=== PATIENT | female | born 1985 | race Two or more races ===

== ENCOUNTER 2018-11-18 23:27 | Emergency (ER) | payer SELFPAY ==
[~2018-11-18] VITALS: Ht 167.6 cm; Wt 90.7 kg
--- NOTE | 2018-11-18 23:50 | PHYS DOC ---
Adult General Chief Complaint Chief Complaint: VAGINAL BLEEDING HPI HPI Patient is a 33 year old F who traveled from [place] over the last 48 hours and is coming in concerned about her . She states her LMP was in Sept and she has been having intermittent bleeding and cramping. Currently here in ER she denies bleeding or cramping. Review of Systems Review of Systems Constitutional: Denies fever or chills [] Eyes: Denies change in visual acuity, redness, or eye pain [] HENT: Denies nasal congestion or sore throat [] Respiratory: Denies cough or shortness of breath [] Cardiovascular: No additional information not addressed in HPI [] GI: Denies abdominal pain, nausea, vomiting, bloody stools or diarrhea [] : Denies dysuria or hematuria [] Musculoskeletal: Denies back pain or joint pain [] Integument: Denies rash or skin lesions [] Neurologic: Denies headache, focal weakness or sensory changes [] Endocrine: Denies polyuria or polydipsia [] All other systems were reviewed and found to be within normal limits, except as documented in this note. Current Medications Current Medications Current Medications Medications (Trade) Dose Ordered Sig/[place] Start Time Stop Time Status Last Admin Dose Admin Sodium Chloride 1,000 ml @ 1,000 mls/hr 1X ONCE 11/19/18 00:00 11/19/18 00:59 DC 11/19/18 00:15 1,000 MLS/HR Allergies Allergies Allergies Coded Allergies Type Severity Reaction Last Updated Verified No Known Drug Allergies 11/18/18 No Physical Exam Physical Exam Constitutional: Well developed, well nourished, no acute distress, non-toxic appearance. [] HENT: Normocephalic, atraumatic, bilateral external ears normal, oropharynx moist, no oral exudates, nose normal. [] Eyes: PERRLA, EOMI, conjunctiva normal, no discharge. [] Neck: Normal range of motion, no tenderness, supple, no stridor. [] Cardiovascular:Heart rate regular rhythm, no murmur [] Lungs & Thorax: Bilateral breath sounds clear to auscultation [] Abdomen: Bowel sounds normal, soft, no tenderness, no masses, no pulsatile masses. [] Skin: Warm, dry, no erythema, no rash. [] Back: No tenderness, no CVA tenderness. [] Extremities: No tenderness, no cyanosis, no clubbing, ROM intact, no edema. [] Neurologic: Alert and oriented X 3, normal motor function, normal sensory function, no focal deficits noted. [] Psychologic: Affect normal, judgement normal, mood normal. [] Current Patient Data Vital Signs Vital Signs Date Time Temp Pulse Resp B/P (MAP) Pulse Ox O2 Delivery O2 Flow Rate FiO2 11/18/18 23:45 98.6 77 16 107/59 (75) 100 Room Air 98.6 Lab Values Laboratory Tests Test 11/18/18 00:05 11/18/18 23:30 11/19/18 00:13 White Blood Count 11.6 x10^3/uL (4.0-11.0) H Red Blood Count 4.30 x10^6/uL (3.50-5.40) Hemoglobin 11.8 g/dL (12.0-15.5) L Hematocrit 34.7 % (36.0-47.0) L Mean Corpuscular Volume 81 fL (79-100) Mean Corpuscular Hemoglobin 27 pg (25-35) Mean Corpuscular Hemoglobin Concent 34 g/dL (31-37) Red Cell Distribution Width 14.7 % (11.5-14.5) H Platelet Count 304 x10^3/uL (140-400) Neutrophils (%) (Auto) 66 % (31-73) Lymphocytes (%) (Auto) 23 % (24-48) L Monocytes (%) (Auto) 6 % (0-9) Eosinophils (%) (Auto) 4 % (0-3) H Basophils (%) (Auto) 1 % (0-3) Neutrophils # (Auto) 7.7 x10^3uL (1.8-7.7) Lymphocytes # (Auto) 2.7 x10^3/uL (1.0-4.8) Monocytes # (Auto) 0.7 x10^3/uL (0.0-1.1) Eosinophils # (Auto) 0.4 x10^3/uL (0.0-0.7) Basophils # (Auto) 0.1 x10^3/uL (0.0-0.2) Sodium Level 139 mmol/L (136-145) Potassium Level 3.6 mmol/L (3.5-5.1) Chloride Level 104 mmol/L (98-107) Carbon Dioxide Level 25 mmol/L (21-32) Anion Gap 10 (6-14) Blood Urea Nitrogen 7 mg/dL (7-20) Creatinine 0.8 mg/dL (0.6-1.0) Estimated GFR (Cockcroft-Gault) 82.6 BUN/Creatinine Ratio 9 (6-20) Glucose Level 112 mg/dL (70-99) H Calcium Level 8.7 mg/dL (8.5-10.1) Total Bilirubin 0.3 mg/dL (0.2-1.0) Aspartate Amino Transferase (AST) 13 U/L (15-37) L Alanine Aminotransferase (ALT) 17 U/L (14-59) Alkaline Phosphatase 72 U/L (46-116) Total Protein 6.8 g/dL (6.4-8.2) Albumin 2.8 g/dL (3.4-5.0) L Albumin/Globulin Ratio 0.7 (1.0-1.7) L Urine Collection Type Unknown Urine Color Rossi Urine Clarity Cloudy Urine pH 6.0 Urine Specific [place] >=1.030 Urine Protein 30 mg/dL (NEG-TRACE) Urine Glucose (UA) 250 mg/dL (NEG) Urine Ketones (Stick) Trace mg/dL (NEG) Urine Blood Negative (NEG) Urine Nitrite Negative (NEG) Urine Bilirubin Small (NEG) Urine Urobilinogen Dipstick 1.0 mg/dL (0.2 mg/dL) Urine Leukocyte Esterase Small (NEG) Urine RBC 6-10 /HPF (0-2) Urine WBC 5-10 /HPF (0-4) Urine Squamous Epithelial Cells Mod /LPF Urine Bacteria Moderate /HPF (0-FEW) Urine Mucus Marked /LPF POC Urine HCG, Qualitative Hcg positive (Negative) Laboratory Tests 11/18/18 00:05 Laboratory Tests 11/18/18 00:05 EKG EKG [] Radiology/Procedures Radiology/Procedures [] Course & Med Decision Making Course & Med Decision Making Pertinent Labs and Imaging studies reviewed. (See chart for details) [] Dragon Disclaimer Dragon Disclaimer This electronic medical record was generated, in whole or in part, using a voice recognition dictation system. Departure Departure Impression: Primary Impression: Threatened in second trimester Disposition: 01 HOME, SELF-CARE Condition: STABLE Referrals: BRIDGETT JOSEPH MD Patient Instructions: Threatened Miscarriage, Acfo-om-Dumo Additional Instructions: Your tests today looked very good. It is very important that you find an news producer doctor here locally to care for you during your . Call Wednesday to schedule. RADHA PEREZ Nov 18, 2018 23:50
[2018-11-19] MEDS ORDERED: IV NORMAL SALINE 1000ML BAG 1,000 ML IV ONE
[2018-11-19 00:20] LABS: BASO # 0.1 x10^3/uL (0.0-0.2); BASO % 1 % (0-3); EOS # 0.4 x10^3/uL (0.0-0.7); EOS % 4 % (0-3); HEMATOCRIT 34.7 % (36.0-47.0); HEMOGLOBIN 11.8 g/dL (12.0-15.5); LYMPH # 2.7 x10^3/uL (1.0-4.8); LYMPH % 23 % (24-48); MEAN CORPUSCULAR HEMOGLOBIN 27 pg (25-35); MEAN CORPUSCULAR HGB CONC 34 g/dL (31-37); MEAN CORPUSCULAR VOLUME 81 fL (79-100); MONO # 0.7 x10^3/uL (0.0-1.1); MONO % 6 % (0-9); NEUT # 7.7 x10^3uL (1.8-7.7); NEUT % 66 % (31-73); PLATELET COUNT 304 x10^3/uL (140-400); RED CELL DISTRIBUTION WIDTH 14.7 % (11.5-14.5); WHITE BLOOD COUNT 11.6 x10^3/uL (4.0-11.0)
[2018-11-19 00:22] LABS: BILIRUBIN,URINE SMALL (NEG); CLARITY,URINE CLOUDY; COLOR,URINE AMBER; NITRITE,URINE NEGATIVE (NEG); PROTEIN,URINE 30 mg/dL (NEG-TRACE)
[2018-11-19 00:33] LABS: CALCIUM 8.7 mg/dL (8.5-10.1); CREATININE 0.8 mg/dL (0.6-1.0); GFR 82.6; POTASSIUM 3.6 mmol/L (3.5-5.1)
--- NOTE | 2018-11-19 00:35 | RAD ---
INDICATION: PT HAD SOME BLEEDING 3 DAYS AGO, NO BLEEDING TODAY, HAD SOME PAIN YESTERDAY. COMPARISON: None. TECHNIQUE: Grayscale and color ultrasound images uterus and adnexa. FINDINGS: Intrauterine gestational sac is identified with a pole. Biparietal diameter 40 mm, 18 week 2 day Head circumference 149 mm, 18 weeks 0 day Abdominal circumference 129 mm, 18 week 3 day Femur length 27 mm, 18 week 2 day Estimated weight 235 g. Composite estimated gestational age 18 weeks and 2 days with estimated due date of 04/19/2019. There is movement identified as well as a heartbeat of 158. Breech presentation at time of exam. Posterior placenta. Gestational sac shape unremarkable. IMPRESSION: 1. Intrauterine is identified with the positive heartbeat. Recommend nonemergent anatomic screening. Electronically signed by: Greg Liang MD (11/19/2018 12:31 AM) [id number]
[2018-11-19 00:39] LABS: ALBUMIN 2.8 g/dL (3.4-5.0); ALBUMIN/GLOBULIN RATIO 0.7 (1.0-1.7); TOTAL BILIRUBIN 0.3 mg/dL (0.2-1.0); TOTAL PROTEIN 6.8 g/dL (6.4-8.2)
[2018-11-19 00:49] LABS: BACTERIA,URINE MODERATE /HPF (0-FEW); SQUAMOUS EPITHELIAL CELL,UR MOD /LPF
[2018-11-19 01:30] VITALS: BP 102/58
[2018-11-21 14:23] LABS: GC PROBE Negative (Negative)
== END 2018-11-19 02:07 | disposition home or self-care (01) ==
LOC: ER 23:27
DX: O20.0 Threatened abortion (principal); Z3A.18 18 weeks gestation of pregnancy
CPT/HCPCS: 36415; 76815; 80053; 81001; 81025; 84702; 85025; 86901; 87086; 87491; 87591; 99284; J7030; Q0111

== ENCOUNTER 2019-02-06 02:24 | Emergency (ER) | payer SELFPAY ==
[~2019-02-06] VITALS: Ht 162.6 cm; Wt 81.6 kg
[2019-02-06 02:33] VITALS: BP 161/80
[2019-02-06] MEDS ORDERED: BUPIVAC MPF-EPI 0.5%-1:200000 30 ML VIAL. INJ ONE (02:45)
[2019-02-06] MEDS ORDERED: DEXAMETHASONE 4 MG TABLET PO ONE (02:45)
[2019-02-06] MEDS ORDERED: AMOXICILLIN/K CLAV 875/125MG TABLET. PO ONE (02:45)
--- NOTE | 2019-02-06 02:48 | PHYS DOC ---
Past Medical History Past Medical History: No Pertinent History Past Surgical History: No Surgical History Alcohol Use: None Drug Use: None Adult General Chief Complaint Chief Complaint: DENTAL PROBLEM HPI HPI Patient is a 33 year old female who presents with a toothache. Brother in law who is present in the room translating reports that the patient's cavity filling recently came out and she has been having pain in her right lower molar since five o'clock last night. Patient has been taking liquid ibuprofen at home without relief. Patient is currently five months without any OB care. Patient's estimated delivery date is 05/11/19. Patient does not have a dentist. Patient reports that the pain is constant, sharp, and currently rated 10/10. Patient cannot sleep secondary to the pain. Patient denies any alleviating or aggravating factors. Patient denies radiation of the pain. Denies fever or chills. Review of Systems Review of Systems Constitutional: Denies fever or chills Eyes: Denies change in visual acuity, or eye pain HENT: Denies nasal congestion or sore throat Respiratory: Denies cough or shortness of breath Cardiovascular: Denies chest pain or palpitations GI: Denies abdominal pain, nausea, vomiting, or diarrhea : Denies dysuria or hematuria Musculoskeletal: Denies back pain or joint pain Integument: Denies rash or skin lesions Neurologic: Denies headache, focal weakness or sensory changes Complete systems were reviewed and found to be within normal limits, except as documented in this note. Current Medications Current Medications Current Medications Medications (Trade) Dose Ordered Sig/[place] Start Time Stop Time Status Last Admin Dose Admin Amoxicillin/ Clavulanate Potassium (Augmentin 875/ 125mg) 1 tab 1X ONCE 02/06/19 02:45 02/06/19 02:46 DC 02/06/19 03:45 1 TAB Bupivacaine HCl/ Epinephrine Bitart (Sensorcain-Mpf Epi 0.5%-1:[id number]) 30 ml 1X ONCE 02/06/19 02:45 02/06/19 02:46 DC 02/06/19 03:45 30 ML Dexamethasone (Decadron) 10 mg 1X ONCE 02/06/19 02:45 02/06/19 02:46 DC 02/06/19 03:46 10 MG Allergies Allergies Allergies Coded Allergies Type Severity Reaction Last Updated Verified No Known Drug Allergies 11/18/18 No Physical Exam Physical Exam Constitutional: Well developed, well nourished, in moderate painful distress. HENT: Normocephalic, atraumatic, bilateral external ears normal, oropharynx moist, no oral exudates, nose normal. Open area to right second maxillary molar at site of prior filling. Open nahomy with tenderness to palpation Eyes: PERRL, EOMI, conjunctiva normal, no discharge. Neck: Normal range of motion, supple, no stridor. Cardiovascular:Heart rate regular rhythm, no murmur Lungs & Thorax: Bilateral breath sounds clear to auscultation Abdomen: Soft, no tenderness, Skin: Warm, dry, no rash. Back: No tenderness, no CVA tenderness. Extremities: No tenderness, ROM intact, no edema. Neurologic: Alert and oriented X3, no focal deficits noted. Psychologic: Affect normal. Speech normal. Current Patient Data Vital Signs Vital Signs Date Time Temp Pulse Resp B/P (MAP) Pulse Ox O2 Delivery O2 Flow Rate FiO2 02/06/19 02:33 97.9 102 20 161/80 (107) 99 Room Air 97.9 EKG EKG [] Radiology/Procedures Radiology/Procedures [] Course & Med Decision Making Course & Med Decision Making Patient is a 33 year old female who presents to the ED for dental pain. Inferior alveolar block performed for symptomatic relief of dentalgia. Patient treated with Augmentin and Dexamethasone in the ED. Patient was advised not to use ibuprofen during and to take Tylenol instead for pain. Patient given referral for OB. Free clinic and dental list provided. Patient stable for discharge with outpatient follow-up with PCP. Discussed findings and plan with patient and family, who acknowledge understanding and agreement. Dragon Disclaimer Dragon Disclaimer This electronic medical record was generated, in whole or in part, using a voice recognition dictation system. Additional Procedures Progress Verbal consent obtained from patient. Time out performed. Hand hygiene utilized. A 25 gauge hypodermic needle was utilized to inject 5cc of bupivacaine 0.5% with epinephrine for right inferior alveolar block. Patient with interval improvement of symptoms of dentalgia. Patient tolerated procedure well and without difficulty. Departure Departure Impression: Primary Impression: Dentalgia Additional Impressions: Loss of filling from access hole of tooth Disposition: HOME, SELF-CARE Condition: STABLE Referrals: NO PCP (PCP) DI SANDHU MD Patient Instructions: ABCs of , Dental Caries-Brief, Toothache-Brief Scripts Chlorhexidine Gluconate (PERIDEX) 15 Ml Mouthwash 15 ML PO BID, #946 ML Prov: KODY NETTLES DO 02/06/19 Acetaminophen (TYLENOL) 325 Mg Tablet 1 TAB PO PRN Q4HRS PRN for PAIN, #30 TAB Prov: KODY NETTLES DO 02/06/19 Amoxicillin/Potassium Clav (AUGMENTIN 875-125 TABLET) 1 Each Tablet 1 TAB PO BID, #14 TAB Prov: KODY NETTLES DO 02/06/19 Problem Qualifiers Additional Impressions: Weeks of gestation: unspecified Qualified Codes: Z34.90 - Encounter for supervision of normal , unspecified, unspecified trimester KODY NETTLES DO Feb 06, 2019 02:48
[2019-02-06] MEDS ORDERED: ACET325T9 PO (03:03)
[2019-02-06] MEDS ORDERED: CHLO15MO2 PO (03:03)
[2019-02-06] MEDS ORDERED: AMOX1TAB61 PO (03:03)
== END 2019-02-06 04:06 | disposition home or self-care (01) ==
LOC: ER 02:24
DX: O99.612 Diseases of the digestive system complicating pregnancy, second trimester (principal); K08.59 Other unsatisfactory restoration of tooth; Z3A.27 27 weeks gestation of pregnancy
CPT/HCPCS: 64400; 99284; J3490; J8540